=== PATIENT | male | born 1960 | race African-American/Black ===

== ENCOUNTER 2023-06-04 10:27 | Day surgery (SDC) | payer OTHER ==
[2023-06-03 09:54] VITALS: BMI 23.3
[2023-06-04] MEDS ORDERED: fentaNYL 50 mcg/mL 1 mL Vial ONE ×2 (13:00→13:04)
[2023-06-04] MEDS ORDERED: PROPOFOL 20 ML ONE (13:00)
[2023-06-04] MEDS ORDERED: Bupivacaine PF 0.5% 30 ML VIAL ONE (13:01)
[2023-06-04] MEDS ORDERED: CEFAZOLIN 2 GM VIAL ONE (13:11)
[2023-06-04] MEDS ORDERED: Ondansetron PF 4 MG/2 ML Vial ONE (13:25)
[2023-06-04] MEDS ORDERED: Dexamethasone 4 mg/ml Vial ONE (13:25)
[2023-06-04] MEDS ORDERED: ePHEDrine Sulfate 50 MG/10 ML VIAL ONE (13:31)
== END 2023-06-04 15:30 | disposition home or self-care (01) ==
LOC: CSHSDC 10:27
PROVIDERS: ATTEND Podiatrist Foot & Ankle Surgery
PROC: 0SGP0JZ Fusion of Right Toe Phalangeal Joint with Synthetic Substitute, Open Approach (ICD-10-PCS; principal; 2023-06-04)
DX: M20.41 Other hammer toe(s) (acquired), right foot (principal); E11.9 Type 2 diabetes mellitus without complications; I10 Essential (primary) hypertension; I25.10 Atherosclerotic heart disease of native coronary artery without angina pectoris; E78.5 Hyperlipidemia, unspecified; I25.2 Old myocardial infarction; Z79.899 Other long term (current) drug therapy; Z79.82 Long term (current) use of aspirin; Z98.890 Other specified postprocedural states
CPT/HCPCS: C1713; J0665; J1100; J2405; J2704; J3010